=== PATIENT | male | born 1995 | race Caucasian/White ===

== ENCOUNTER 2018-10-15 11:36 | Emergency (ER) | payer BC ==
[~2018-10-15] VITALS: Ht 193 cm; Wt 76.2 kg
[2018-10-15 12:26] LABS: BASOPHILS ABSOLUTE AUTO 0.01 K/mm3 (0.00-0.23); BASOPHILS PERCENT AUTO 0 % (0-2); EOSINOPHILS PERCENT AUTO 0 % (0-6); Hematocrit 46.2 % (37.0-53.0); Hemoglobin 15.7 g/dL (13.5-17.5); IMMATURE GRAN ABSOLUTE AUTO 0.02 K/mm3 (0.00-0.10); IMMATURE GRAN PERCENT AUTO 0 % (0-1); LYMPHOCYTES ABSOLUTE AUTO 0.28 K/mm3 (0.84-5.20); LYMPHOCYTES PERCENT AUTO 3 % (21-46); MONOCYTES ABSOLUTE AUTO 0.37 K/mm3 (0.16-1.47); MONOCYTES PERCENT AUTO 3 % (4-13); Mean Corpuscular HGB 31.9 pg (26.0-34.0); Mean Corpuscular Volume 94 fL (80-100); Mean Platelet Volume 10.1 fL (9.1-12.4); NEUTROPHILS ABSOLUTE AUTO 10.17 K/mm3 (1.96-9.15); NEUTROPHILS PERCENT AUTO 94 % (41-73); Platelet Count 273 K/mm3 (150-400); RDW Coefficient Variation 11.9 % (11.7-14.2); RDW Standard Deviation 40.8 fL (35.1-46.3); Red Blood Cell Count 4.92 M/mm3 (4.30-5.90); White Blood Cell Count 10.85 K/mm3 (4.00-11.30)
[2018-10-15 14:06] LABS: Alanine Aminotransfer (ALT/SGP 22 U/L (12-78); Albumin, Blood 3.7 g/dL (3.4-5.0); Albumin/Globulin Ratio 1.3 (0.8-1.8); Alk Phos 52 U/L (50-136); Anion Gap 6 mmol/L (6-16); Aspartate Aminotrans (AST/SGOT 16 U/L (12-37); Bilirubin, Total 1.9 mg/dL (0.1-1.0); Blood Urea Nitrogen 17 mg/dL (8-24); CO2, Blood 24 mmol/L (21-32); Calcium, Blood 7.8 mg/dL (8.5-10.1); Chloride, Blood 111 mmol/L (98-108); Globulin, Blood 2.8 g/dL (2.2-4.0); Glomerular Filtration Rate >60 (60-); Glucose, Blood 103 mg/dL (70-99); Potassium, Blood 3.9 mmol/L (3.5-5.5); Sodium, Blood 141 mmol/L (136-145); Total Protein, Blood 6.5 g/dL (6.4-8.2)
[2018-10-15] MEDS ORDERED: PROM25 PO (14:27)
== END 2018-10-15 14:37 | disposition home or self-care (01) ==
LOC: ER 11:36
PROVIDERS: Emergency Medicine
DX: K52.9 Noninfective gastroenteritis and colitis, unspecified (principal)
CPT/HCPCS: 36415; 80053; 83690; 85025; 96361; 96374; 96375; 99284-25; J0780; J1200; J2060; J2405; J7030